=== PATIENT | male | born 1945 | race Caucasian/White ===

== ENCOUNTER 2016-12-17 05:57 | Inpatient (IN) | payer MEDICARE, OTHER ==
[2016-12-09 09:08] VITALS: BMI 31.0
--- NOTE | 2016-12-09 09:53 | PAT Medication Instructions ---
Service Date Dec 09, 2016. Current Home Medication List Acetaminophen (Tylenol), 1,000 MG PO PRN Ascorbic Acid (Vitamin C), 500 MG PO QAM Diclofenac (Voltaren ), 1 TAB PO BID [Inhaler], 1 PUFFS INH PRN Medication Instructions For Your Scheduled Surgery Diclofenac (Voltaren ), 1 TAB PO BID (please check with surgeon for instructions ) - Hold the following medications the morning of surgery: Ascorbic Acid (Vitamin C), 500 MG PO QAM - Take the following medications the morning of surgery with a sip of water: Advair (if needed) Albuterol Nebulizer (if needed) Acetaminophen (Tylenol), 1,000 MG PO PRN - Take the following medications as scheduled the night before surgery: Advair (if needed) Albuterol Nebulizer (if needed) Acetaminophen (Tylenol), 1,000 MG PO PRN If you have any questions please call us at [phone] or [phone] ( [place]) or [phone]
[2016-12-09 10:50] LABS: BASO % 0.4 %; BASO ABS # 0.02 K/uL (0-0.2); COMPLETE YES; EOS % 6.2 %; LYMPH % 29.8 %; LYMPH ABS # 1.69 K/uL (1.2-3.4); MEAN CELL VOLUME 95.7 fL (80-100); MEAN CORPUSCULAR HEMOGLOBIN 31.6 pg (25-34); MEAN PLATELET VOLUME 11.7 fL (7.4-10.4); MONO % 7.6 %; PLATELET COUNT 164 K/uL (130-400); RED BLOOD COUNT 4.91 M/uL (4.7-6.1); WHITE BLOOD COUNT 5.68 K/uL (4.8-10.8)
[2016-12-09 10:54] LABS: URINE APPEARANCE CLEAR (CLEAR); URINE BILIRUBIN NEG (NEG); URINE COLOR YELLOW; URINE NITRITE NEG (NEG); URINE PH 7.5 (4.5-7.5); URINE SPECIFIC GRAVITY 1.021 (1.000-1.030); UROBILINOGEN NEG (NEG)
[2016-12-09 10:55] LABS: MANUAL MICROSCOPIC REQUIRED? NO; REVIEW REQ? NO
[2016-12-09 11:00] LABS: PARTIAL THROMBOPLASTIN RATIO 1.1; PROTHROMBIN TIME (PATIENT) 10.6 SECONDS (9.0-12.0)
--- NOTE | 2016-12-09 11:00 | DIAGNOSTIC IMAGING REPORT ---
CHEST PREADMISSION(PA/LAT) CLINICAL HISTORY: PAT preoperative evaluation COMPARISON STUDY: 10/13/2013 FINDINGS: Chronic parenchymal scarring left suprahilar and right basilar region. Chronic parenchymal and pleural scarring left base. Chronic elevation right hemidiaphragm. IMPRESSION: Chronic change. No acute process. Electronically signed by: Matthew Frey M.D. 12/09/2016 10:59 AM Dictated Date/Time: 12/09/2016 10:58 AM
[2016-12-09 11:32] LABS: BUN/CREATININE RATIO 25.3 (10-20); CALCIUM 9.1 mg/dl (8.5-10.1); CREATININE 0.73 mg/dl (0.60-1.40); POTASSIUM 4.6 mmol/L (3.5-5.1)
--- NOTE | 2016-12-16 10:44 | History and Physical ---
History & Physical Date Dec 16, 2016. Chief Complaint Right knee pain History of Present Illness The patient is a 71 year old male with complaints of Additional History Hepatic Disease: No Endocrine Disorder: No Kidney Disease: No Hypertension: No Heart Disease: No Bleeding Tendencies: No Infectious Diseases: No Allergies Coded Allergies: No Known Allergies (Unverified , 12/09/16) Home Medications Scheduled Acetaminophen (Tylenol), 1,000 MG PO PRN Ascorbic Acid (Vitamin C), 500 MG PO QAM Diclofenac (Voltaren ), 1 TAB PO BID Scheduled PRN [Advair], Unknown Dose INH BID PRN for SOB/Wheezing [Albuterol], Unknown Dose INH for SOB/Wheezing Physical Examination Skin: warm/dry Eyes: normal inspection, EOMI ENT: normal ENT inspection, pharynx normal Head: normocephalic, atraumatic Neck: supple, no adenopathy Respiratory/Chest: lungs clear, normal breath sounds Cardiovascular: regular rate, rhythm Abdomen / GI: normal bowel sounds, non tender Extremities: normal inspection, + pertinent finding (Right knee medial compartment pain, ROM -10-120. Xrays varus aligned knee, medial compartment tenderness, mild crepitus) Diagnosis Right knee arthritis Plan of Treatment Right total knee arthroplasty
[2016-12-17] VITALS (9 sets, daily range): BP systolic 110–142; BP diastolic 64–80; PULSE 79–100; TEMP 36.6–36.9; O2SAT 93–97; Ht 175.3 cm; Wt 97.1 kg
[~2016-12-17] VITALS: Ht 175.3 cm; Wt 97.1 kg
[~2016-12-17 05:57] MED LIST: ACET-1256 PO; ASCO500T3 PO; Advair INH; Albuterol INH; DICL1TAB5 PO
[2016-12-17] MEDS ORDERED: ACETAMINOPHEN 500 MG TAB PO SCH (06:00)
[2016-12-17] MEDS ORDERED: CeleBREX 200 MG CAP PO SCH (06:00)
[2016-12-17] MEDS ORDERED: LACTATED RINGER'S 1000ML 1,000 ML IV SCH (06:00)
[2016-12-17] MEDS ORDERED: CEFAZOLIN 2000 MG/60 ML D5W IV SCH (06:00)
[2016-12-17] MEDS ORDERED: FAMOTIDINE 20 MG TAB PO SCH (06:00)
[2016-12-17] MEDS ORDERED: LACTATED RINGER'S 1000ML 500 ML IV ONE (06:00)
[2016-12-17] MEDS ORDERED: GABAPENTIN 300 MG CAP PO SCH (06:00)
[2016-12-17] MEDS ORDERED: LACTATED RINGER'S 1000ML IV SCH (06:00)
[2016-12-17] MEDS ORDERED: OXYCODONE HCL 10 MG TABCR (OXYCONTIN) PO SCH (06:00)
[2016-12-17] MEDS ORDERED: ROPIVACAINE 5MG/ML 30 ML 150 MG, BUPIVACAINE/EPINEPHR 0.5% MPF 30 ML, KETOROLAC TROMETH... INFIL SCH ×14 (06:00)
[2016-12-17] MEDS ORDERED: DEXAMETHASONE 4 MG TAB PO SCH (06:00)
[2016-12-17] MEDS ORDERED: VANCOMYCIN INJ 1,450 MG in SODIUM CHLORIDE 0.9% 500ML 500 ML IV SCH (06:00)
[2016-12-17] MEDS ORDERED: BUPIVACAINE 0.5 % 5 MG/1 ML PF 10ML VIAL ONE (06:45)
[2016-12-17] MEDS ORDERED: FENTANYL CITRATE INJ 50 MCG/1 ML 2 ML VIAL ONE (07:47)
[2016-12-17] MEDS ORDERED: PROPOFOL IV EMULSION 10 MG/ML 20 ML VIAL IV ONE (07:47)
[2016-12-17] MEDS ORDERED: LIDOCAINE HCL 2% 2 ML VIAL (20MG/ML) ONE (07:47)
[2016-12-17] MEDS ORDERED: MIDAZOLAM HCL 1 MG/ML 2ML VIAL ONE (07:47)
[2016-12-17] MEDS ORDERED: BACITRACIN 50000 UNIT VIAL ONE (07:51)
[2016-12-17] MEDS ORDERED: ORTHO JOINT ANESTHETIC ONE (07:51)
[2016-12-17] MEDS ORDERED: POVIDONE-IODINE OP SOLN 30 ML BTL ONE (07:51)
[2016-12-17] MEDS: TRANEXAMIC ACID INJ 1,000 MG in SODIUM CHLORIDE 0.9% 100ML 100 ML IV SCH ×2 (07:55→12:04)
--- NOTE | 2016-12-17 07:55 | History & Physical Bridge Note ---
H&P Re-Evaluation Bridge Note: I have examined the patient, reviewed the History & Physical and in the interval since the performance of the History & Physical I have noted the following changes of clinical significance: No changes noted
[2016-12-17] MEDS ORDERED: KETAMINE HCL INJ 50 MG/ML 10 ML VIAL ONE (08:21)
[2016-12-17] MEDS ORDERED: EpHEDrine SULFATE INJ 50 MG/ML AMP IV PRN (09:00)
[2016-12-17] MEDS ORDERED: FENTANYL CITRATE INJ 50 MCG/1 ML 2 ML VIAL IV PRN (09:00)
[2016-12-17] MEDS ORDERED: ATROPINE SULFATE 0.1 MG/ML 5ML SYR IV PRN (09:00)
[2016-12-17] MEDS ORDERED: ONDANSETRON INJ 2 MG/ML 2 ML VIAL IV PRN ×2 (09:00→10:00)
[2016-12-17] MEDS ORDERED: PHENYLEPHRINE 100MCG/ML 5ML SYR ONE (09:22)
[2016-12-17] MEDS ORDERED: METOCLOPRAMIDE HCL INJ 5 MG/ML 2 ML VIAL IV PRN (10:00)
[2016-12-17] MEDS ORDERED: MAGNESIUM HYDROXIDE SUSP 30 ML UDC PO PRN (10:00)
[2016-12-17] MEDS ORDERED: ZOLPIDEM TARTRATE 5 MG TAB PO PRN (10:00)
[2016-12-17] MEDS ORDERED: ALUMINUM/MAGNESIUM/SIMETH (MAALOX MAX) 30 ML UDC PO PRN (10:00)
--- NOTE | 2016-12-17 10:14 | DIAGNOSTIC IMAGING REPORT ---
TWO VIEWS RIGHT KNEE CLINICAL HISTORY: Postoperative examination. FINDINGS: AP and crosstable lateral portable views of the right knee are obtained. A right knee arthroplasty is in near anatomic alignment. There has been undersurface remodeling of the patella. No acute fracture is seen. There are expected postoperative changes around the knee including a surgical drain, soft tissue edema, and subcutaneous gas. IMPRESSION: Expected postoperative changes status post right knee arthroplasty. No acute fracture is seen. Electronically signed by: Patrice Bo M.D. 12/17/2016 10:12 AM Dictated Date/Time: 12/17/2016 10:12 AM
--- NOTE | 2016-12-17 10:37 | [facility] Operative Report ---
Operative Report Operative Date Dec 17, 2016. Pre-Operative Diagnosis Right knee arthritis Post-Operative Diagnosis same Procedure(s) Performed Right total knee was performed the right knee was prepped and draped in usual sterile manner was exsanguinated with Esmarch bandage and tourniquet was inflated to 350 mmHg. Longitudinal incision was made median parapatellar was incision was made sows everted and flexed fat pad was removed initialization and the medial fist of his greater soft tissue using electrocautery. The proximal tibial cut was made using the extramedullary alignment guide and oscillating saw his bone fragment was removed. Next the drill was used to get access to the femoral canal the flexible IM alignment rogers was placed in the distal femoral cut was made resecting 10 mm of bone. Following this the guide for the distal pins was placed and these holes were created using a Instantis spiral pins size 5 was chosen and sized to be used and distal femoral cuts were made. Bone fragment was removed and a lamina jig and fixture builder apprentice was used to expose the meniscal remnants and these were removed. Trial distal femur was placed more sharp used to gain access to the proximal tibia size 5 tibial component which was incised as well stem was prepared trial reduction was carried out and a size 13 polishers incised used. The patella was reamed ancestors toes utilized. The patella tracked well tendency for subluxation trial components removed and the joint mix injected. This really irrigated with pulsatile irrigation the bone plug was placed distally bone ends were dried and after obtaining all the components final components were cemented in position using gentamicin cement. Also was removed and he was held in extension while cement hardened and the patella was cemented in position. Wound was again thoroughly irrigated Betadine soak was performed. Was let down and hemostasis was obtained and closure over Hemovac drain was closed using a combination of FiberWire Vicryl and 0 Dexon igor sterile dressing with Adaptic 4 x 4's and sterile web roll and a double length Adelfo. The system was Berhane Wilson essentials were all portions of the procedure including prepping draping surgical-assist wound closure and dressing application. Surgeon Dr. House Library Cataloging Technician Surgeon(s) Berhane Wilson PA-C Estimated Blood Loss 25 cc Findings Osteoarthritis Specimens A: Right knee bone and tissue I attest to the content of the Intraoperative Record and any orders documented therein. Any exceptions are noted below.
--- NOTE | 2016-12-17 11:21 | Anesthesiology Progress Note ---
Anesthesia Post Op Note Date & Time Dec 17, 2016 at 11:21 Vital Signs Pain Intensity: 0 Vital Signs Past 12 Hours Date Time Temp Pulse Resp B/P (MAP) Pulse Ox O2 Delivery O2 Flow Rate FiO2 12/17/16 10:45 36.7 80 16 107/60 95 Nasal Cannula 3 12/17/16 10:35 79 16 111/65 94 Nasal Cannula 2 12/17/16 10:25 78 16 111/62 95 Nasal Cannula 2 12/17/16 10:15 76 16 108/57 96 Nasal Cannula 2 12/17/16 10:05 75 16 101/63 94 Nasal Cannula 2 12/17/16 09:55 78 16 104/60 96 Nasal Cannula 2 12/17/16 09:47 37.2 77 16 110/66 95 Nasal Cannula 2 12/17/16 07:12 36.9 86 18 133/71 Room Air 95 Notes Mental Status: alert / awake / arousable, participated in evaluation Pt Amnestic to Procedure: Yes Nausea / Vomiting: adequately controlled Pain: adequately controlled Airway Patency, RR, SpO2: stable & adequate BP & HR: stable & adequate Hydration State: stable & adequate Neuraxial Anesthesia: was administered, sensory block is resolving Anesthetic Complications: no major complications apparent
[2016-12-17] MEDS: D5W AND 1/2NSS + 20MEQ KCL 1,000 ML IV SCH ×2 (12:31→21:36)
[2016-12-17] MEDS ORDERED: MoRPHine SULFATE 10 MG/ML CARP/VIAL IV PRN (13:00)
[2016-12-17] MEDS: KETOROLAC TROMETHAMINE 15 MG/ML VIAL IV. SCH ×2 (13:53→20:24)
[2016-12-17] MEDS: CEFAZOLIN IV 2,000 MG in DEXTROSE 5% 50ML 50 ML IV SCH (15:18)
[2016-12-17] MEDS: OXYCODONE HCL IR 5 MG TAB (IMMEDIATE RELEASE) PO PRN (15:25)
[2016-12-17] MEDS: FERROUS GLUCONATE 324 MG TAB PO SCH (17:53)
[2016-12-17] MEDS: MoRPHine SULFATE 4 MG/ML 1 ML CARP\\VIAL IV PRN ×2 (17:59→20:24)
[2016-12-17] MEDS: DOCUSATE SODIUM 100 MG CAP PO SCH (21:34)
[2016-12-17] MEDS: ASPIRIN 81 MG ECTAB PO SCH (21:34)
[2016-12-17] MEDS: OXYCODONE HCL 10 MG TABCR (OXYCONTIN) PO SCH (21:35)
[2016-12-17] MEDS: ACETAMINOPHEN 500 MG TAB PO SCH (21:36)
[2016-12-18] VITALS (7 sets, daily range): BP systolic 104–130; BP diastolic 60–75; PULSE 79–84; TEMP 36.6–37.1; O2SAT 93–95
[2016-12-18] MEDS: CEFAZOLIN IV 2,000 MG in DEXTROSE 5% 50ML 50 ML IV SCH (00:32)
[2016-12-18] MEDS: OXYCODONE HCL IR 5 MG TAB (IMMEDIATE RELEASE) PO PRN ×3 (00:32→18:29)
[2016-12-18] MEDS: KETOROLAC TROMETHAMINE 15 MG/ML VIAL IV. SCH ×2 (02:02→10:26)
[2016-12-18] MEDS: MoRPHine SULFATE 4 MG/ML 1 ML CARP\\VIAL IV PRN (03:17)
[2016-12-18] MEDS: ACETAMINOPHEN 500 MG TAB PO SCH ×3 (05:55→21:38)
[2016-12-18 06:28] LABS: BUN/CREATININE RATIO 16.3 (10-20); CALCIUM 8.3 mg/dl (8.5-10.1); CREATININE 0.82 mg/dl (0.60-1.40); HEMATOCRIT 38.4 % (42-52); MEAN CELL VOLUME 95.8 fL (80-100); MEAN CORPUSCULAR HEMOGLOBIN 31.9 pg (25-34); MEAN CORPUSCULAR HGB CONC 33.3 g/dl (32-36); MEAN PLATELET VOLUME 12.2 fL (7.4-10.4); PLATELET COUNT 126 K/uL (130-400); POTASSIUM 4.4 mmol/L (3.5-5.1); RED BLOOD COUNT 4.01 M/uL (4.7-6.1); WHITE BLOOD COUNT 10.95 K/uL (4.8-10.8)
[2016-12-18 06:29] LABS: PLT ESTIMATE DECREASED
--- NOTE | 2016-12-18 07:28 | Orthopedic Progress Note ---
Orthopedic Progress Note Date of Service Dec 18, 2016. Subjective Post OP Day: 1 Reports: feeling well Objective N/V intact (Mild footdrop ), dressing C/D/I (Hemovac in place), toes mobile Date Time Temp Pulse Resp B/P (MAP) Pulse Ox O2 Delivery O2 Flow Rate FiO2 12/18/16 03:05 36.7 84 18 104/65 (78) 94 Room Air 12/18/16 00:15 Room Air 12/17/16 22:51 36.6 92 14 124/70 (88) 93 Room Air 12/17/16 19:02 36.8 100 18 130/80 (97) 94 Room Air 12/17/16 16:08 Room Air 12/17/16 15:06 36.6 96 18 142/74 (96) 94 Room Air 12/17/16 14:11 90 16 134/70 (91) 96 Nasal Cannula 2.0 12/17/16 13:05 92 16 117/68 (84) 95 Nasal Cannula 2.0 12/17/16 12:10 82 18 121/73 (89) 96 Nasal Cannula 2.0 12/17/16 11:38 36.6 79 19 112/70 (84) 97 Nasal Cannula 2.0 12/17/16 11:10 95 Nasal Cannula 2.0 12/17/16 11:10 36.9 84 16 110/64 (79) 95 Nasal Cannula 2.0 12/17/16 11:10 Nasal Cannula 2.0 12/17/16 10:45 36.7 80 16 107/60 95 Nasal Cannula 3 12/17/16 10:35 79 16 111/65 94 Nasal Cannula 2 12/17/16 10:25 78 16 111/62 95 Nasal Cannula 2 12/17/16 10:15 76 16 108/57 96 Nasal Cannula 2 12/17/16 10:05 75 16 101/63 94 Nasal Cannula 2 12/17/16 09:55 78 16 104/60 96 Nasal Cannula 2 12/17/16 09:47 37.2 77 16 110/66 95 Nasal Cannula 2 Laboratory Results 24 Hours: Test 12/18/16 04:56 Hematocrit 38.4 % Hemoglobin 12.8 g/dL Assessment & Plan Assessment: 71 yo male stable POD #1 s/p right TKA Plan: 1. Med management 2. DVT prophylaxis- ASA, SCDs 3. PT/OT 4. D/C planning- home without services
[2016-12-18] MEDS ORDERED: DEXAMETHASONE INJ 10 MG in SYRINGE 0 ML IV SCH (07:30)
--- NOTE | 2016-12-18 07:31 | Discharge Instructions ---
Discharge Instructions Date of Service Dec 18, 2016. Admission Reason for Admission: Right Knee Total Knee Arthroplasty Discharge Discharge Diagnosis / Problem: s/p right total knee arthroplasty Discharge Goals Goal(s): Decrease discomfort, Improve function Activity Recommendations Activity Limitations: as noted below Weightbearing Status: Right weightbearing (as tolerated) . Instructions / Follow-Up Instructions / Follow-Up ACTIVITY RECOMMENDATIONS: SELF CARE INSTRUCTIONS AFTER TOTAL KNEE REPLACEMENT A. You may need to continue a physical therapy program after discharge from the hospital. There are several options available to you. Your doctor will assist you in selecting the best one for you. 1. An out-patient facility 2 to 3 times a week for therapy or home therapy. 2. Continue working on all exercises taught to you in the hospital. Your goals should be to increase bending of your knee to 90 degrees and beyond and to fully straighten your knee. B. You may progress at your own pace from walking with a walker or crutches to a cane; then to no assistive devices. C. Make walking a part of your daily routine. Be up as much as comfortable with rest periods throughout the day. Rest with leg elevation is very important. Use the ice wrap frequently for the first 3-4 weeks. D. There are no restrictions on activities. You may ride in a car, shop, participate in virtualization engineer and all social activities. E. Wear the long elastic stockings (GENARO hose) 20 hours a day for 2 weeks after surgery. They can be removed several times a day for laundering and for a bath. F. You may shower, no tub baths until cleared by your doctor. SPECIAL CARE INSTRUCTIONS: VERY IMPORTANT TO READ AND REVIEW A. There are a few signs you need to watch for after you are home. Call [facility] [place] if you notice any of the followin. Increased severe knee pain. Some pain is expected especially when you exercise. 2. Increased swelling in your leg or knee; pain or swelling of the calf muscle in either lower leg. 3. Any fluid drainage from the incision. 4. Shortness of breath or chest pain. B. Please call [facility] at if you have any concerns or questions about your operation or recovery. The doctor or his nurse will return your call promptly. C. You must take antibiotics before dental work, bladder, bowel or other surgery. Your doctor will provide you with a permanent care to carry describing this precaution. IMPORTANT: * REMEMBER TO TAKE ASPIRIN, 81 MG, TWICE DAILY FOR 4 WEEKS UNLESS OTHERWISE DIRECTED. THIS IS YOUR BLOOD THINNER. * HIGH RISK PATIENTS MAY BE PRESCRIBED A STRONGER BLOOD THINNER. THIS WILL BE PROVIDED AT DISCHARGE. * CALL IF INCREASED PAIN, REDNESS, DRAINAGE OR FEVER GREATER THAT 101. * WEAR GENARO HOSE 20 HOURS PER DAY FOR 2 WEEKS. Silverlon- This is a large adhesive bandage that contains silver ions. This helps your incision heal by fighting off bacteria and protecting it from the outside environment. You are permitted to shower with this dressing. This will remain on your incision for 7 days and then should be removed. Some visible blood or drainage through the dressing window is normal. If there is significant drainage or leaking noted before the 7 days notify your doctor's office immediately. Once removed, keep incision clean and dry. If there is any drainage or redness noted, please call your surgeon. FOLLOW UP VISIT: If appointment is not already scheduled: Please call [facility] [place] to make a follow-up appointment for 2 weeks after your surgery at . Current Hospital Diet Patient's current hospital diet: Regular Diet Discharge Diet Recommended Diet: Regular Diet Procedures Procedures Performed: Rigth Total Knee Arthroplasty Pending Studies Studies pending at discharge: no Medical Emergencies . Who to Call and When: Medical Emergencies: If at any time you feel your situation is an emergency, please call 911 immediately. . Non-Emergent Contact Non-Emergency issues call your: Surgeon Call Non-Emergent contact if: temperature is above 101.5, your pain is not controlled, wound has increased drainage, wound has increased redness . "Provider Documentation" section prepared by Berhane Wilson PA-C. . VTE Core Measure Inpt VTE Proph given/why not?: Other Anticoagulation (ASA 81mg bid), T.E.DRiky [place], SCD's [place] Drug Monitoring Program Search Results: patient reviewed within database, no issues identified
[2016-12-18] MEDS: PANTOprazole SOD 40 MG TAB PO SCH (09:00)
[2016-12-18] MEDS: OXYCODONE HCL 10 MG TABCR (OXYCONTIN) PO SCH ×2 (10:26→20:52)
[2016-12-18] MEDS: ASPIRIN 81 MG ECTAB PO SCH ×2 (10:27→20:51)
[2016-12-18] MEDS: DOCUSATE SODIUM 100 MG CAP PO SCH ×2 (10:27→20:51)
[2016-12-18] MEDS: FERROUS GLUCONATE 324 MG TAB PO SCH ×3 (10:27→18:24)
[2016-12-18] MEDS: ASCORBIC ACID 500 MG TAB PO SCH (10:28)
[2016-12-18] MEDS: MULTIVITAMIN TAB PO SCH (10:28)
[2016-12-18] MEDS: CeleBREX 200 MG CAP PO SCH (20:51)
[2016-12-19] MEDS: OXYCODONE HCL IR 5 MG TAB (IMMEDIATE RELEASE) PO PRN ×2 (05:43→09:57)
[2016-12-19] MEDS: ACETAMINOPHEN 500 MG TAB PO SCH (05:43)
[2016-12-19] MEDS: MoRPHine SULFATE 4 MG/ML 1 ML CARP\\VIAL IV PRN (06:25)
[2016-12-19 06:26] VITALS: BP 144/80; PULSE 82; TEMP 36.5; O2SAT 92
--- NOTE | 2016-12-19 07:27 | Orthopedic Progress Note ---
Orthopedic Progress Note Date of Service Dec 19, 2016. Subjective Post OP Day: 2 Reports: feeling well Objective N/V intact, dressing C/D/I (Silverlon in place), toes mobile Date Time Temp Pulse Resp B/P (MAP) Pulse Ox O2 Delivery O2 Flow Rate FiO2 12/19/16 06:26 36.5 82 16 144/80 (101) 92 Room Air 12/18/16 23:10 37.1 84 14 125/75 (92) 95 Room Air 12/18/16 20:00 Room Air 12/18/16 15:03 36.8 83 18 115/71 (86) 93 Room Air 12/18/16 11:38 36.6 80 14 108/60 (76) 95 Room Air 12/18/16 11:15 79 94 12/18/16 09:24 95 Room Air 12/18/16 08:29 Room Air 12/18/16 07:35 36.9 79 14 114/74 (87) 95 Room Air Assessment & Plan Assessment: 71 yo male stable POD #2 s/p right TKA Plan: 1. Med management 2. DVT prophylaxis- ASA, SCDs 3. PT/OT 4. D/C planning- home without services
[2016-12-19] MEDS ORDERED: ASPEC81 PO (07:29)
[2016-12-19] MEDS ORDERED: CLB200 PO (07:29)
[2016-12-19] MEDS ORDERED: OXYSR10 PO (07:29)
[2016-12-19] MEDS ORDERED: RXC5 PO (07:29)
[2016-12-19] MEDS ORDERED: ONDA8TAB12 PO (07:29)
[2016-12-19] MEDS ORDERED: ACET-24 PO (07:29)
[2016-12-19] MEDS: OXYCODONE HCL 10 MG TABCR (OXYCONTIN) PO SCH (07:31)
[2016-12-19] MEDS: FERROUS GLUCONATE 324 MG TAB PO SCH (07:32)
[2016-12-19] MEDS: DOCUSATE SODIUM 100 MG CAP PO SCH (07:32)
[2016-12-19] MEDS: ASPIRIN 81 MG ECTAB PO SCH (07:32)
[2016-12-19] MEDS: MULTIVITAMIN TAB PO SCH (07:32)
[2016-12-19] MEDS: PANTOprazole SOD 40 MG TAB PO SCH (07:33)
[2016-12-19] MEDS: ASCORBIC ACID 500 MG TAB PO SCH (07:33)
[2016-12-19] MEDS: CeleBREX 200 MG CAP PO SCH (07:34)
[2016-12-19] MEDS: MoRPHine SULFATE 2 MG/ML CARP IV PRN ×2 (07:35→07:55)
[2016-12-19 08:53] VITALS: TEMP 36.5; O2SAT 92
[2016-12-19 09:13] VITALS: BP 138/74; PULSE 84; O2SAT 97
--- NOTE | 2016-12-31 15:34 | Discharge Summary ---
Orthopedic Discharge Summary Admission Date/Reason Dec 17, 2016 at 07:35 Right Knee Total Knee Arthroplasty. Discharge Date/Disposition Dec 19, 2016 Home Diagnosis Principal Diagnosis: Right knee arthritis Procedure(s) Performed Right total knee arthroplasty Medication Reconciliation New Medications: Acetaminophen (Sb Non-Aspirin Extra Stre) 500 Mg Tab 1000 MG PO Q8H for 30 Days, TAB Aspirin (Aspirin EC Low Dose) 81 Mg Ectab 81 MG PO BID for 30 Days Celecoxib (Celebrex) 200 Mg Cap 200 MG PO BID, #60 CAP Oxycodone HCl (Oxycontin) 10 Mg Tabcr 10 MG PO Q12, #20 Oxycodone HCl (Oxycodone HCl) 5 Mg Tab 5-10 MG PO Q4-6 PRN for Pain, #60 TAB Continued Medications: Ascorbic Acid (Vitamin C) 500 Mg Tab 500 MG PO QAM [Advair] () Unknown Strength Unknown Dose INH BID PRN for SOB/Wheezing [Albuterol] () Unknown Strength Unknown Dose INH PRN for SOB/Wheezing Discontinued Medications: Acetaminophen (Tylenol) 500 Mg Tab 1000 MG PO PRN, TAB Diclofenac (Voltaren ) 25 Mg Tabec 1 TAB PO BID, TAB Admission Physical Exam As per Admitting History & Physical. Hospital Course Pt underwent right total knee arthroplasty without complication. He tolerated the procedure well and was discharged to the recovery room. His was post-op course was uneventful. His pain was well controlled with combination of spinal anesthesia, adductor canal block, intra-op joint injection, IV, and oral pain medications. His H/H was stable and did not require transfusion. He was started on Aspirin for DVT prophylaxis. He also utilized SCDs. His drain was discontinued on post-op day 2 and his dressing will remain in place for 7 days post-op.He tolerated post-op PT well and was ambulating and bending his knee appropriately. He was discharged on post-op day 2. He will continue his therapy at home on his own and will follow-up in the office in 10-14 days. Discharge Instructions Please refer to the electronic Patient Visit Report (Discharge Instructions) for additional information.
== END 2016-12-19 10:48 | disposition home or self-care (01) | DRG 470 ==
LOC: C.ACU 05:57 → C.3E 07:35 → ENRESERV 10:41
PROC: 0SRC0J9 Replacement of Right Knee Joint with Synthetic Substitute, Cemented, Open Approach (ICD-10-PCS; principal; 2016-12-17 08:15)
DX: M17.11 Unilateral primary osteoarthritis, right knee (principal); E66.9 Obesity, unspecified; J45.909 Unspecified asthma, uncomplicated; I10 Essential (primary) hypertension; Z79.899 Other long term (current) drug therapy; Z86.73 Personal history of transient ischemic attack (TIA), and cerebral infarction without residual deficits; Z85.51 Personal history of malignant neoplasm of bladder; Z68.31 Body mass index [BMI] 31.0-31.9, adult